=== PATIENT | female | born 1960 | race Caucasian/White ===

== ENCOUNTER → 2018-12-06 | Outpatient (CLI) | payer BC ==
--- NOTE | 2018-12-06 17:30 | RAD ---
Examination: KUB History: Kidney stone Comparison/Correlation: None Findings: Frontal view of the abdomen was obtained. Calcific densities overlying the right renal mid to lower pole are noted. At the interpolar region, the calculus present measuring up to 1.2 cm diameter. More inferiorly, there is a calculus measuring up to 1.1 cm diameter smaller calculus is also present slightly more inferiorly. Calcific densities is overlying the left renal shadow measuring up to 0.5 cm diameter. No suspicious calcification in the pelvis. Impression: Bilateral renal calculi appear to be present and much greater in overall volume on the right. Electronically signed by: Deuce Elmore MD (12/06/2018 5:27 PM) [facility]
== END | disposition home or self-care (01) ==
LOC: RAD 16:01
PROVIDERS: ATTEND Urology
DX: N20.0 Calculus of kidney (principal); Z87.442 Personal history of urinary calculi
CPT/HCPCS: 74018

== ENCOUNTER → 2019-01-05 | Outpatient (CLI) | payer BC ==
--- NOTE | 2019-01-05 15:39 | RAD ---
Abdominal radiograph 01/05/2019 INDICATION: Kidney stone. COMPARISON: 12/06/2018. TECHNIQUE: Supine view of abdomen is provided. FINDINGS: Stable 2.4 cm calculus projecting over the right renal shadow. Stable subcentimeter calcific densities project over the left kidney. No definite calculi identified along the course of the ureters or urinary bladder. Minimal dextroconvex curvature of the lumbar spine appear stable. Nonobstructive bowel gas pattern. Moderate amount of stool is noted. IMPRESSION: Stable bilateral nephrolithiasis with a dominant suspected calculus projecting over the right renal shadow measuring 2.4 cm, previously appearing to represent 2 separate calculi. Electronically signed by: Viridiana Antonio MD (01/05/2019 3:36 PM) [facility]
== END | disposition home or self-care (01) ==
LOC: RAD 14:25
PROVIDERS: ATTEND Urology
DX: N20.0 Calculus of kidney (principal)
CPT/HCPCS: 74018